=== PATIENT | male | born 1995 | race Caucasian/White ===

== ENCOUNTER → 2020-11-23 | Day surgery (SDC) | payer BC ==
[~2020-11-23] VITALS: Ht 172.7 cm; Wt 77.6 kg
[~2020-11-23] MED LIST: CYCLOBENZAPRINE5 MG PO; HYDROCODON-ACE1 EAC6 PO; VYVANSE20 MG PO
== END | disposition home or self-care (01) ==
LOC: OR 07:24
DX: S83.281A Other tear of lateral meniscus, current injury, right knee, initial encounter (principal); J45.909 Unspecified asthma, uncomplicated; F41.8 Other specified anxiety disorders; Z82.49 Family history of ischemic heart disease and other diseases of the circulatory system
CPT/HCPCS: J0171; J1100; J1885; J2001; J2250; J2274; J2405; J2704; J3010; J7120